=== PATIENT | male | born 1960 | race Caucasian/White ===

== ENCOUNTER 2022-11-28 16:56 | Emergency (ER) | payer MEDICAID ==
[2022-11-28] VITALS (18 sets, daily range): BP systolic 128–161; BP diastolic 79–92
[~2022-11-28] VITALS: Ht 182.9 cm; Wt 90.7 kg
[2022-11-28 19:52] LABS: BASO% 0.1 % (0-3); EOS% 1.5 % (0-8); HEMATOCRIT 41.8 % (39.0-50.0); HEMOGLOBIN 12.9 g/dl (14.0-18.0); IMMATURE GRANULOCYTES 0.4 % (0.0-5.0); LYMPH% 13.4 % (15-41); MEAN CORPUSCULAR HGB 32.4 pG CALC (26.0-32.0); MEAN CORPUSCULAR HGB CONC 30.9 g/dL CAL (32.0-36.0); MONO% 12.8 % (2-13); NEUT# 5.4 thou/uL (1.82-7.42); NEUT% 71.8 % (42-76); RED BLOOD COUNT 3.98 mill/uL (4.70-6.10)
[2022-11-28 20:06] LABS: ALKALINE PHOSPHATASE 49 u/l (38-126); ANION GAP 3 (6-22 (CALC)); BILIRUBIN, TOTAL 0.5 mg/dL (0.2-1.3); BUN 17 mg/dL (9-20); BUN/CREATININE RATIO 20 (12-20 (CALC)); CARBON DIOXIDE 29 mmol/l (22-30); CHLORIDE 111 mmol/l (95-108); CREATININE 0.8 mg/dL (0.7-1.3); GFR FOR AFR.AMER. > 60 ML/MIN (>=60 (CALC)); GFR OTHER RACES > 60 ML/MIN (>=60 (CALC)); POTASSIUM 4.2 mmol/l (3.5-5.1); SGOT/AST 32 u/l (17-59); SODIUM 139 mmol/l (137-146); TOTAL PROTEIN 6.6 g/dL (6.3-8.2)
[2022-11-28] MEDS ORDERED: KEFLEX500 MG PO (21:55)
[2022-11-28] MEDS ORDERED: LORTAB 1010 MG PO (21:55)
[2022-11-28] MEDS ORDERED: BACTRIM DS1 TAB PO (21:55)
== END 2022-11-28 22:05 | disposition home or self-care (01) ==
LOC: ED 16:56
PROVIDERS: Emergency Medicine
DX: T52.0X1A Toxic effect of petroleum products, accidental (unintentional), initial encounter (principal); T25.522A Corrosion of first degree of left foot, initial encounter; T32.0 Corrosions involving less than 10% of body surface; L03.116 Cellulitis of left lower limb; Y93.89 Activity, other specified; Y92.009 Unspecified place in unspecified non-institutional (private) residence as the place of occurrence of the external cause

== ENCOUNTER 2023-04-27 12:37 | Emergency (ER) | payer MEDICAID ==
[~2023-04-27] VITALS: Ht 180.3 cm; Wt 91.0 kg
[~2023-04-27 12:37] MED LIST: BACTRIM DS1 TAB PO; KEFLEX500 MG PO; LORTAB 1010 MG PO
[2023-04-27 12:46] VITALS: BP 149/90
[2023-04-27 13:00] VITALS: BP 141/88
[2023-04-27 13:15] VITALS: BP 143/90
[2023-04-27 13:30] VITALS: BP 125/90
[2023-04-27 13:40] VITALS: BP 132/89
[2023-04-27 13:42] VITALS: BP 132/89
== END 2023-04-27 13:52 | disposition home or self-care (01) ==
LOC: ED 12:37
DX: S61.210A Laceration without foreign body of right index finger without damage to nail, initial encounter (principal); W23.0XXA Caught, crushed, jammed, or pinched between moving objects, initial encounter

== ENCOUNTER 2024-05-24 09:16 | Emergency (ER) | payer SELFPAY ==
[2024-05-24] VITALS (11 sets, daily range): BP systolic 129–170; BP diastolic 85–95
[~2024-05-24] VITALS: Ht 180.3 cm; Wt 83.9 kg
[2024-05-24] MEDS ORDERED: TETRACAINE HCL 0.5 %/4 ML SOL OD ONE (09:35)
[2024-05-24] MEDS ORDERED: FLUORESCEIN SODIUM 1 MG EA OD ONE (09:35)
[2024-05-24] MEDS ORDERED: cefTRIAXone SODIUM 2 GM in SODIUM CHLORIDE 0.9% 100 ML IV ONE (10:15)
[2024-05-24] MEDS ORDERED: KETOROLAC TROMETHAMINE 30 MG/ML SDV IV ONE (10:20)
[2024-05-24] MEDS ORDERED: ACETAMINOPHEN 500 MG TAB PO ONE (10:20)
[2024-05-24] MEDS ORDERED: MOXIFLOXACIN Hydrochloride 3 ML BTL OS ONE (10:20)
[2024-05-24 11:05] LABS: BASO% 0.5 % (0-3); EOS% 16.7 % (0-8); IMMATURE GRANULOCYTES 0.3 % (0.0-5.0); LYMPH% 8.8 % (15-41); MEAN CORPUSCULAR HGB 31.1 pG CALC (26.0-32.0); MEAN CORPUSCULAR HGB CONC 32.2 g/dL CAL (32.0-36.0); MONO% 9.4 % (2-13); NEUT# 9.13 thou/uL (1.82-7.42); NEUT% 64.3 % (42-76); RED BLOOD COUNT 5.14 mill/uL (4.70-6.10); RED CELL DISTRI WIDTH 13.9 % (11.5-15.5)
[2024-05-24 11:06] LABS: HEMATOCRIT 49.7 % (39.0-50.0); MEAN CELL VOLUME 96.7 fL CALC (80.0-100.0)
[2024-05-24 11:19] LABS: ALBUMIN 4.1 g/dL (3.2-5.0); CREATININE 0.9 mg/dL (0.7-1.3); POTASSIUM 3.9 mmol/l (3.5-5.1); TOTAL PROTEIN 7.3 g/dL (6.3-8.2)
[2024-05-24 11:25] LABS: BILIRUBIN, TOTAL 0.9 mg/dL (0.2-1.3)
[2024-05-24] MEDS ORDERED: AMOX/K CLAV875 M1 PO (12:30)
[2024-05-24] MEDS ORDERED: BACTRIM DS1 TAB PO (12:30)
[2024-05-24] MEDS ORDERED: OFLOXACIN0.3 % OS (12:30)
[2024-05-24] MEDS ORDERED: SULFAMETHOXAZOLE W/TRIMETHOPRI 1 COMBO TAB PO ONE (12:35)
[2024-05-24] MEDS ORDERED: AMOXICILLIN & POT CLAVULANATE 875 MG/TAB PO ONE (12:35)
== END 2024-05-24 13:09 | disposition home or self-care (01) | DRG 125 ==
LOC: ED 09:16
PROVIDERS: Family Medicine
DX: S05.02XA Injury of conjunctiva and corneal abrasion without foreign body, left eye, initial encounter (principal); L03.213 Periorbital cellulitis; X58.XXXA Exposure to other specified factors, initial encounter
CPT/HCPCS: Q9967